=== PATIENT | male | born 1990 | race Caucasian/White ===

== ENCOUNTER 2017-04-04 22:15 | Emergency (ER) | payer SELFPAY ==
[~2017-04-04] VITALS: Ht 162.6 cm; Wt 74.8 kg
[2017-04-04] MEDS ORDERED: FOLIC ACID 1 MG, THIAMINE HCL 100 MG, MVI, ADULT NO.1 10 ML in DEXTROSE 5% WATER 1,000 ML IV ONE ×4 (23:15)
[2017-04-04 23:37] LABS: ANION GAP 11; BASOPHILS % 1.2 % (0.0-2.0); CARBON DIOXIDE 28 mEq/L (21-32); CHLORIDE 108 mEq/L (98-107); EOSINOPHILS % 2.2 % (0.0-5.0); ETHANOL BLOOD 214 mg/dL; HEMATOCRIT. 42.8 % (42.0-52.0); HEMOGLOBIN. 14.5 g/dL (14.0-18.0); INDEX HEMOLYSI 1 (1-3); INDEX ICTERIC 1 (1-4); INDEX LIPEMIC 1 (1-3); MEAN CORPUSCULAR HEMOGLOBIN 28.6 pg (28.0-32.0); MEAN CORPUSCULAR HGB CONC 33.9 g/dL (31.0-37.0); MEAN CORPUSCULAR VOLUME 84.3 fL (80.0-94.0); MEAN PLATELET VOLUME 8.8 fl (7.4-10.4); MONOCYTES % 5.4 % (2.0-8.0); NEUTROPHILS % 61.2 % (40.0-76.0); PLATELET 295 x1000/uL (130-400); RED BLOOD CELL COUNT 5.08 mill/uL (4.7-6.1); RED CELL DISTRIBUTION WIDTH 14.4 % (11.6-14.6); UREA NITROGEN BLOOD 11 mg/dL (7-21); WHITE BLOOD COUNT 9.2 x1000/uL (4.5-11.0); eGFR > 60 mL/min (>60)
[2017-04-04 23:40] LABS: CLARITY URINE CLEAR (CLEAR); COLOR URINE YELLOW (YELLOW); GLUCOSE URINE NEGATIVE (NEGATIVE); KETONES URINE NEGATIVE (NEGATIVE); LEUKOCYTE ESTERASE URINE NEGATIVE (NEGATIVE); NITRITE URINE NEGATIVE (NEGATIVE); OCCULT BLOOD URINE NEGATIVE (NEGATIVE); PH URINE 5.5 (4.5-8.0); PROTEIN URINE NEGATIVE (NEGATIVE); SPECIFIC GRAVITY URINE 1.011 (1.005-1.030)
[2017-04-05 00:02] LABS: *AMPHETAMINES SCREEN URINE PRESUMTIVE POSITIVE (NEGATIVE); *BARBITURATES SCREEN URINE NEGATIVE (NEGATIVE); *BENZODIAZEPINES SCREEN URINE NEGATIVE (NEGATIVE); *COCAINE SCREEN URINE NEGATIVE (NEGATIVE); CANNABINOID URINE SCREEN PRESUMTIVE POSITIVE (NEGATIVE); ECSTASY MDMA SCREEN URINE NEGATIVE (NEGATIVE); METHADONE URINE SCREEN NEGATIVE (NEGATIVE); OPIATES URINE SCREEN PRESUMTIVE POSITIVE (NEGATIVE); PHENCYCLIDINE URINE SCREEN NEGATIVE (NEGATIVE)
[2017-04-05 05:06] VITALS: BP 118/76
== END 2017-04-05 05:50 | disposition home or self-care (01) ==
LOC: ER 22:51
DX: F10.129 Alcohol abuse with intoxication, unspecified (principal); F19.10 Other psychoactive substance abuse, uncomplicated
CPT/HCPCS: 36415; 80048; 80305; 81003; 85025; 96365; 96366; 99285; G0482; J3411; J3490; J7070; Z7610

== ENCOUNTER 2018-03-11 13:51 | Emergency (ER) | payer MEDICAID ==
[~2018-03-11] VITALS: Ht 170.2 cm; Wt 73.0 kg
[2018-03-11] MEDS ORDERED: TETANUS, DIPHTHERIA, PERTUSSIS VAC/PF 0.5ML (>7YR OLD) IM ONE (14:30)
[2018-03-11] MEDS ORDERED: POVIDONE-IODINE 10% TOPICAL SOLN 240ML TOP ONE (14:30)
[2018-03-11] MEDS ORDERED: LIDOCAINE HCL 1% 20ML VIAL (Pyxis) INJ MC ONE (14:30)
[2018-03-11] MEDS ORDERED: BACITRACIN ZINC OINT UDPKT TOP ONE (14:30)
[2018-03-11] MEDS ORDERED: LIDOCAINE HCL/PF 1% 10 MG/ML 5ML VIAL IJ ONE (15:00)
[2018-03-11] MEDS ORDERED: IBUPROFEN 600MG TABLET PO STA (16:17)
[2018-03-11 16:24] VITALS: BP 131/86
== END 2018-03-11 16:53 | disposition left against medical advice (07) ==
LOC: ER 15:48
DX: S81.811A Laceration without foreign body, right lower leg, initial encounter (principal); J45.909 Unspecified asthma, uncomplicated; F17.200 Nicotine dependence, unspecified, uncomplicated; F12.10 Cannabis abuse, uncomplicated; Z90.49 Acquired absence of other specified parts of digestive tract; W26.8XXA Contact with other sharp object(s), not elsewhere classified, initial encounter; Y93.55 Activity, bike riding; Y92.89 Other specified places as the place of occurrence of the external cause
CPT/HCPCS: 99284; A4246; J3490; X7700; Z7610; 90715

== ENCOUNTER 2022-06-09 16:09 | Emergency (ER) | payer MEDICAID, OTHER ==
[~2022-06-09] VITALS: Ht 170.2 cm; Wt 79.0 kg
[2022-06-09] MEDS ORDERED: AMOXICILLIN/POTASSIUM CLAVULANATE 875/125MG TAB PO STA (17:05)
[2022-06-09] MEDS ORDERED: TETANUS, DIPHTHERIA, PERTUSSIS VAC/PF 0.5ML (>10YR OLD) IM ONE (17:15)
[2022-06-09] MEDS ORDERED: BACITRACIN ZINC OINT UDPKT TOP ONE (17:15)
[2022-06-09] MEDS ORDERED: IBUPROFEN 600MG TABLET PO ONE (17:15)
[2022-06-09] MEDS ORDERED: LIDOCAINE HCL 1% 20ML VIAL (Pyxis) INJ INFIL ONE (17:30)
[2022-06-09] MEDS ORDERED: AMOX1TAB16 PO (18:03)
[2022-06-09] MEDS ORDERED: IBUP-2029 PO (18:03)
[2022-06-09] MEDS ORDERED: SULF1TAB48 PO (18:03)
[2022-06-09 18:40] VITALS: BP 115/78
== END 2022-06-09 18:40 | disposition home or self-care (01) ==
LOC: ER 16:09
DX: S01.551A Open bite of lip, initial encounter (principal); L08.9 Local infection of the skin and subcutaneous tissue, unspecified; J45.909 Unspecified asthma, uncomplicated; F12.10 Cannabis abuse, uncomplicated; Z90.49 Acquired absence of other specified parts of digestive tract; Z87.828 Personal history of other (healed) physical injury and trauma; W54.0XXA Bitten by dog, initial encounter; Y93.89 Activity, other specified; Y92.89 Other specified places as the place of occurrence of the external cause
CPT/HCPCS: 90471; 90715; 99283; J3490